=== PATIENT | female | born 1950 | race Caucasian/White ===

== ENCOUNTER 2018-01-30 13:33 | Emergency (ER) | payer MEDICARE, SELFPAY ==
[2018-01-30] VITALS (10 sets, daily range): BP systolic 123–166; BP diastolic 81–100; PULSE 60–82; RESP 11–18; TEMP 36.9; O2SAT 97–100
--- NOTE | 2018-01-30 14:39 | ED_ITS ---
HPI - Extremity Injury (Upper) General Chief Complaint: Extremity Injury, Upper Stated Complaint: sent from [facility] for broken wrist Time Seen by Provider: 01/30/18 14:09 Source: patient Mode of arrival: ambulatory Limitations: no limitations History of Present Illness HPI narrative: Patient is a 67-year-old female sent from [facility] for ortho evaluation. She fell breaking her wrist. She did have x-rays there unfortunately are not able to view them. She is already in a fiberglass mobilizer. She has no numbness or tingling stable to move her fingers she. She denies any other injury. complaint: injury to: left and wrist Related Data Home Medications Medication Instructions Recorded Confirmed hydrocodone-acetaminophen 1 - 2 tab PO Q4H PRN 01/30/18 01/30/18 Previous Rx's Medication Instructions Recorded levothyroxine [Synthroid] 75 mcg PO QAM #90 tab 11/19/16 Allergies Allergy/AdvReac Type Severity Reaction Status Date / Time No Known Allergies Allergy Uncoded 11/06/17 12:40 Review of Systems Review of Systems GENERAL: Denies chills,fever HEENT: Denies throat pain RESPIRATORY: Denies dyspnea, cough, wheezing CARDIOVASCULAR: Denies chest pain, palpitations GASTROINTESTINAL: Denies nausea, vomiting MUSCULOSKELETAL: See HPI SKIN: No rash, no laceration, no pruritus NEUROLOGIC: Denies weakness, dizziness, headache, numbness 8 point review of systems is negative except for those stated above and HPI PFSH Surgical History History of cataract removal with insertion of prosthetic lens Status post appendectomy Status post hemorrhoidectomy Family History Mother Age: 102 Memory loss Grandfather Glaucoma, unspecified glaucoma, unspecified laterality Exam Initial Vital Signs Initial Vital Signs: Vital Signs Temperature 98.4 F 01/30/18 13:35 Pulse Rate 60 01/30/18 13:35 Respiratory Rate 18 01/30/18 13:35 Blood Pressure 123/81 H 01/30/18 13:35 Pulse Oximetry 100 01/30/18 13:35 GENERAL: Well-appearing, well-nourished and in no acute distress. CARDIOVASCULAR: peripheral pulses in tact, cap refill <2 sec RESPIRATORY: No respiratory distress, speaks in full sentences without difficulty EXTREMITIES: Normal range of motion, no clubbing or edema. Neurovascularly intact -obvious left wrist deformity. Neurovascularly intact able to move fingers distal radial pulse is felt NEUROLOGICAL: Cranial nerves II through XII grossly intact. Normal gait and speech. SKIN: Warm, dry, no petechiae, no rashes or lesions. Procedures Orthopedic Fracture Reduction Fracture #1: Time Out Performed: Yes Side: left Fracture Reduction Location: radius and ulna Analgesia: procedural sedation Technique: direct manipulation and traction/counter-traction Post Reduction X-rays Demonstrate: acceptable reduction Post-reduction neuro exam: intact Post-reduction vascular exam: intact Splint Applied: Yes (Sugar-tong splint) Patient Tolerated Procedure: Well Additional Comments: Neurovascularly intact afterwards. Splint applied by myself with assistance of nurse Procedural Sedation Indication: fracture/dislocation reduction ASA Class: I Mallampati Airway Classification: Class I Time of Last PO Intake: 14:44 Preparation: cafeteria monitor applied, pulse oximeter, capnometry used, supplemental O2 applied and IV secured IV Etomidate dose (mg): 6 ED Sedation Level: Moderate (Concious) Patient Tolerated Procedure: Well and No complications Complications: none Course Hospital Course: Dr. Chi on in the ED to see and evaluate patient. Patient will be followed up in the clinic with surgery SaturdayFebruary 03. Additional Information: Orders Ordered: ED Orders 01/30/18 14:40 XR wrist LT min 3V Stat 01/30/18 16:34 XR wrist LT 2V Stat Discontinued Medications Etomidate (Amidate) 6 mg IV NOW ONE Stop: 01/30/18 15:55 Last Admin: 01/30/18 16:25 Dose: 6 mg Morphine Sulfate (Morphine) 2 mg IV NOW ONE Stop: 01/30/18 16:35 Last Admin: 01/30/18 16:40 Dose: 2 mg Ondansetron HCl (Zofran) 4 mg IV NOW ONE Stop: 01/30/18 16:35 Last Admin: 01/30/18 16:40 Dose: 4 mg Vital Signs - 8 hr 01/30/18 13:35 01/30/18 16:16 01/30/18 16:25 Temperature 98.4 F Pulse Rate 60 65 79 Respiratory Rate 18 18 16 Blood Pressure 123/81 H Blood Pressure [Right Arm] 128/81 H 131/85 H Pulse Oximetry 100 100 100 01/30/18 16:27 01/30/18 16:30 01/30/18 16:33 Temperature Pulse Rate 81 77 80 Respiratory Rate 16 18 16 Blood Pressure Blood Pressure [Right Arm] 158/96 H 150/100 H 166/88 H Pulse Oximetry 97 100 100 01/30/18 17:00 01/30/18 17:35 01/30/18 18:13 Temperature Pulse Rate 82 69 77 Respiratory Rate 18 11 L 16 Blood Pressure Blood Pressure [Right Arm] 157/98 H 137/89 H 137/89 H Pulse Oximetry 100 100 100 01/30/18 18:16 Temperature Pulse Rate 77 Respiratory Rate 18 Blood Pressure 137/89 H Blood Pressure [Right Arm] Pulse Oximetry 97 MDM - Extremity Injury (Upper) Imaging Data left wrist #1: Radiologist's impression: PROCEDURE: XR WRIST LT MIN 3V INDICATIONS: fracture sent from [facility] TECHNIQUE: 3 views of the wrist were acquired. COMPARISON: None. FINDINGS: Bones: There are distal radius and ulnar fractures with posterior displacement of the distal fragment from the proximal fragment. Posterior angulation is present. Scaphoid view: Not obtained. Soft tissues: No suspicious soft tissue calcifications. IMPRESSION: Displaced and posterior angulated distal ulna and radial fractures. Dictated by: Edwige Dai M.D. on 01/30/2018 at 14:48 left wrist #2: My impression: Radiologist's impression: PROCEDURE: XR WRIST LT MIN 3V INDICATIONS: fracture sent from [facility] TECHNIQUE: 3 views of the wrist were acquired. COMPARISON: None. FINDINGS: Bones: There are distal radius and ulnar fractures with posterior displacement of the distal fragment from the proximal fragment. Posterior angulation is present. Scaphoid view: Not obtained. Soft tissues: No suspicious soft tissue calcifications. IMPRESSION: Displaced and posterior angulated distal ulna and radial fractures. Dictated by: Edwige Dai M.D. on 01/30/2018 at 14:48 Discharge Plan Departure Patient Disposition: Home, Self-Care Clinical Impression: Fracture of left wrist Discharge Date/Time: 01/30/18 18:16 Interventions: ED Discharge Assessment Last Done: 01/30/18 18:16 Instructions: Wrist Fracture Activity Restrictions/Additional Instructions: *You have been diagnosed with left wrist fracture *What to do: Keep arm and splint at all *Continue to take medications as directed -take medication as previously prescribed *Follow up with your primary care provider in 2-3 days, follow up with Dr. Chi as arranged on [place] for surgery *Return to ER if you should have increasing pain, numbness, tingling or any new , worsening or concerning symptoms Prescriptions: No Action levothyroxine [Synthroid] 75 MCG tablet 75 mcg PO QAM Qty: 90 RF: 1 hydrocodone-acetaminophen 5-325 mg tablet 1 - 2 tab PO Q4H PRN (Reason: Pain, Moderate) RF: 0 Referrals: Kamilah Coleman ARNP [Primary Care Provider] - Ivon Chi MD [Physician] -
--- NOTE | 2018-01-30 14:53 | PC.NURSE ---
pt arrived to Er with a splint from Dr. Bowser's office. pt to able to wiggle her fingers. denies numbness or tingling.
[2018-01-30] MEDS: ETOMIDATE 2 MG/ML VIAL 6 MG IV (16:25)
--- NOTE | 2018-01-30 16:34 | DI.RAD.S_ITS ---
PROCEDURE: XR WRIST LT 2V INDICATIONS: post reduction TECHNIQUE: 2 views of the wrist were acquired. COMPARISON: [facility], CR, XR WRIST LT MIN 3V, 01/30/2018, 14:18. FINDINGS: Bones: No previously unidentified fractures or dislocations. The prior fracture subluxations and angulation abnormalities have been significantly improved after closed reduction and casting. No suspicious bony lesions. Scaphoid view: Not obtained of the scaphoid visualized has appeared free of trauma. Incomplete visualization, however. Soft tissues: No suspicious soft tissue calcifications. IMPRESSION: Significant improvement in the fracture malalignment previously present after closed reduction and casting/splinting. Dictated by: Leonidas Servin M.D. on 01/30/2018 at 16:58 Approved by: Leonidas Servin M.D. on 01/30/2018 at 16:59
[2018-01-30] MEDS: MORPHINE 2 MG/ML INJ IV (16:40)
[2018-01-30] MEDS: ONDANSETRON 4 MG/2 ML INJ IV (16:40)
--- NOTE | 2018-01-31 00:44 | P.HP_ITS ---
History of Present Illness Date Patient Seen: 01/30/18 Time Patient Seen: 17:40 Chief complaint: sent from [place] for broken wrist Narrative: She was up on a chair when she fell on her outstretched hand and noted the acute onset of severe left wrist pain. She denies shortness of breath chest pain or other problems or dizziness prior to her fall. She notes fairly severe left hip wrist pain. She was seen at [facility] and referred for follow-up. Patient History Surgical History History of cataract removal with insertion of prosthetic lens Status post appendectomy Status post hemorrhoidectomy Family & Social History Family History: Reviewed 01/31/18 by Ivon Chi MD Safety & Behavioral: Feels Safe in Current Yes Environment Tobacco & Substance use: alcohol intake frequency 0-2 drinks per day Substance Use Type does not use Meds Home Medications Medication Instructions Recorded Confirmed Type levothyroxine [Synthroid] 75 mcg PO QAM #90 tab 11/19/16 01/30/18 Rx hydrocodone-acetaminophen 1 - 2 tab PO Q4H PRN 01/30/18 01/30/18 History Allergies Allergy/AdvReac Type Severity Reaction Status Date / Time No Known Allergies Allergy Uncoded 11/06/17 12:40 Review of Systems Review of Systems Denies history of heart problems lung problems abdominal problems she is right- hand-dominant. All systems reviewed & are unremarkable except as noted in HPI and below Exam Vital Signs (past 8 hours): - 01/30/18 17:00 01/30/18 17:35 01/30/18 18:13 Pulse Rate 82 69 77 Respiratory Rate 18 11 L 16 Blood Pressure Blood Pressure [Right Arm] 157/98 H 137/89 H 137/89 H Pulse Oximetry 100 100 100 01/30/18 18:16 Pulse Rate 77 Respiratory Rate 18 Blood Pressure 137/89 H Blood Pressure [Right Arm] Pulse Oximetry 97 Oxygen Delivery Method Room Air Oxygen Flow Rate 3 Narrative Exam Narrative: HEENT benign, lungs clear, cor regular rate and rhythm, head is atraumatic, abdomen is benign, the left wrist she is able to fire her fingers with trace motion she has some mild decreased sensation into the fingertips, she has fair range of motion into her left shoulder splints intact, there is deformity of her wrist, sensation slightly decreased in the left hand it is intact in the right hand abdomen soft and benign, lower extremities are benign with no evidence of edema Assessment & Plan Plan: Assessment/Plan Narrative: She has a comminuted left distal radius fracture which was grossly displaced. She has had at closed reduction and splinting in the emergency room. She does have residual displacement in her left wrist and would be benefitted from open reduction internal fixation. Procedure alternatives risks benefits and complications were discussed in detail. We will work on getting her scheduled for that on an outpatient basis. The plan is for a volar plate procedure alternatives risks benefits and complications discussed.
== END 2018-01-30 18:16 | disposition home or self-care (01) ==
PROVIDERS: Emergency Provider Emergency Medicine; PCP Nurse Practitioner Family
DX: S62.102A Fracture of unspecified carpal bone, left wrist, initial encounter for closed fracture (principal); W19.XXXA Unspecified fall, initial encounter
CPT/HCPCS: 25565; 73100; 73110; 96374; 96375; 99152; 99283; 99285; J2270; J2405

== ENCOUNTER → 2021-03-30 11:02 | Outpatient (CLI) | payer MEDICARE, SELFPAY ==
[2021-03-30 19:45] LABS: TSH w/ Reflex to FT4 8.78 uIU/mL (0.47-4.68)
== END ==
PROVIDERS: PCP Physician Assistant Medical; Visit Provider Physician Assistant Medical
DX: E03.9 Hypothyroidism, unspecified (principal)
CPT/HCPCS: 84439; 84443

== ENCOUNTER → 2021-08-02 13:23 | Outpatient (CLI) | payer MEDICARE, SELFPAY ==
[2021-08-02 20:39] LABS: Free T4, Direct Thyroxine 0.71 ng/dL (0.78-2.19)
== END ==
PROVIDERS: PCP Physician Assistant Medical; Referring Provider Physician Assistant Medical; Visit Provider Physician Assistant Medical
DX: E03.8 Other specified hypothyroidism (principal)
CPT/HCPCS: 84439; 84443

== ENCOUNTER → 2022-02-12 10:28 | Outpatient (CLI) | payer MEDICARE, SELFPAY ==
[2022-02-12 20:08] LABS: Add Manual Diff / Slide Review NO; Basophils Absolute Auto 0 /uL (0-100); Basophils Percent Auto 0.8 % (0-2); Eosinophils Absolute Auto 200 /uL (0-450); Eosinophils Percent Auto 3.1 % (2-4); Hematocrit 42.7 % (36-46); Hemoglobin 14.3 g/dL (12.0-16.0); Lymphocytes Absolute Auto 2300 /uL (1100-4500); Lymphocytes Percent Auto 45.8 % (25-40); Mean Corpuscular HGB Conc 33.4 % (30-36); Mean Corpuscular Hemoglobin 30.9 PG (26-34); Mean Corpuscular Volume 92.5 fL (80-100); Monocytes Absolute Auto 400 /uL (0-900); Monocytes Percent Auto 8.4 % (3-14); Neutrophils Absolute Auto 2200 /uL (1500-7000); Neutrophils Percent Auto 41.9 % (50-75); Platelet Count 295 X10^3/uL (150-400); Red Blood Cell Count 4.62 X10^6/uL (4.0-5.2); Red Cell Distribution Width 14.9 % (11.6-14.8); White Blood Cell Count 5.1 X10^3/uL (4.5-11.0)
[2022-02-12 20:16] LABS: Alanine Aminotransferase 25 IU/L (<35); Albumin 3.5 g/dL (3.5-5.0); Albumin Globulin Ratio 1.3 (1.0-2.8); Alkaline Phosphatase 59 U/L (38-126); Aspartate Aminotransferase 37 IU/L (14-36); BUN Creatinine Ratio 21.6 (6-22); Bilirubin Total 0.9 mg/dL (0.2-1.3); Blood Urea Nitrogen 16 mg/dL (7-17); Calcium 9.2 mg/dL (8.4-10.2); Carbon Dioxide 28 mmol/L (22-32); Chloride 104 mmol/L (98-107); Cholesterol 299 mg/dL (140-199); Estimated Glomerular Filt Rate > 60 mL/min (>60); Globulin 2.6 g/dL (1.7-4.1); Glucose 87 mg/dL (80-110); HDL Cholesterol 69 mg/dL (40-60); HEMOLYSIS < 15 (0-50); LDL Cholesterol Calculated 210 mg/dL (<100); Potassium 4.7 mmol/L (3.4-5.1); Sodium 137 mmol/L (137-145); Total Protein 6.1 g/dL (6.3-8.2); Triglycerides 101 mg/dL (35-150)
[2022-02-12 20:39] LABS: Free T3, Triiodothyronine Free 2.78 pg/mL (2.77-5.27)
== END ==
PROVIDERS: PCP Physician Assistant Medical; Visit Provider Physician Assistant Medical
DX: E03.8 Other specified hypothyroidism (principal); S52.92XA Unspecified fracture of left forearm, initial encounter for closed fracture; E03.9 Hypothyroidism, unspecified; G89.29 Other chronic pain; M54.9 Dorsalgia, unspecified; M72.0 Palmar fascial fibromatosis [Dupuytren]; Z12.11 Encounter for screening for malignant neoplasm of colon; S52.202A Unspecified fracture of shaft of left ulna, initial encounter for closed fracture
CPT/HCPCS: 80053; 80061; 84439; 84443; 84481; 85025

== ENCOUNTER → 2022-06-13 10:35 | Outpatient (CLI) | payer MEDICARE, SELFPAY ==
[2022-06-13 19:25] LABS: Add Manual Diff / Slide Review NO; Basophils Absolute Auto 0 /uL (0-100); Basophils Percent Auto 0.9 % (0-2); Eosinophils Absolute Auto 200 /uL (0-450); Eosinophils Percent Auto 3.5 % (2-4); Hematocrit 42.5 % (36-46); Hemoglobin 14.2 g/dL (12.0-16.0); Lymphocytes Absolute Auto 2100 /uL (1100-4500); Lymphocytes Percent Auto 40.3 % (25-40); Mean Corpuscular HGB Conc 33.4 % (30-36); Mean Corpuscular Hemoglobin 31.5 PG (26-34); Monocytes Absolute Auto 600 /uL (0-900); Monocytes Percent Auto 10.4 % (3-14); Neutrophils Absolute Auto 2400 /uL (1500-7000); Neutrophils Percent Auto 44.9 % (50-75); Platelet Count 324 X10^3/uL (150-400); Red Blood Cell Count 4.52 X10^6/uL (4.0-5.2); Red Cell Distribution Width 15.8 % (11.6-14.8); White Blood Cell Count 5.3 X10^3/uL (4.5-11.0)
[2022-06-13 19:30] LABS: Alanine Aminotransferase 34 IU/L (<35); Albumin 3.2 g/dL (3.5-5.0); Albumin Globulin Ratio 1.2 (1.0-2.8); Alkaline Phosphatase 62 U/L (38-126); Aspartate Aminotransferase 34 IU/L (14-36); BUN Creatinine Ratio 13.6 (6-22); Bilirubin Total 0.5 mg/dL (0.2-1.3); Blood Urea Nitrogen 11 mg/dL (7-17); Calcium 9.1 mg/dL (8.4-10.2); Carbon Dioxide 30 mmol/L (22-32); Chloride 103 mmol/L (98-107); Estimated Glomerular Filt Rate > 60 mL/min (>60); Globulin 2.7 g/dL (1.7-4.1); Glucose 83 mg/dL (80-110); HDL Cholesterol 57 mg/dL (40-60); HEMOLYSIS < 15 (0-50); Potassium 4.4 mmol/L (3.4-5.1); Sodium 136 mmol/L (137-145); Total Protein 5.9 g/dL (6.3-8.2); Triglycerides 198 mg/dL (35-150)
[2022-06-13 19:38] LABS: NT-proBNP (BNP-Adult 18+) 4180 pg/mL (<125)
[2022-06-13 19:48] LABS: Cholesterol 395 mg/dL (140-199); LDL Cholesterol Calculated 298 mg/dL (<100)
[2022-06-13 19:55] LABS: Free T3, Triiodothyronine Free 2.48 pg/mL (2.77-5.27)
[2022-06-13 19:56] LABS: Free T4, Direct Thyroxine 1.11 ng/dL (0.78-2.19)
[2022-06-13 20:10] LABS: Thyroid Stimulating Hormone 15.9 uIU/mL (0.47-4.68)
== END ==
PROVIDERS: PCP Physician Assistant Medical; Visit Provider Family Medicine
DX: E03.9 Hypothyroidism, unspecified (principal); R06.02 Shortness of breath; R06.00 Dyspnea, unspecified; R53.82 Chronic fatigue, unspecified; R79.89 Other specified abnormal findings of blood chemistry
CPT/HCPCS: 80053; 80061; 83880; 84439; 84443; 84481; 85025

== ENCOUNTER → 2022-06-15 12:18 | Outpatient (CLI) | payer MEDICARE, SELFPAY ==
--- NOTE | 2022-06-15 12:19 | DI.ECHO.S_ITS ---
[place] [facility]---------+ [facility] +---------+ : : [address] : : : : [id number] : : : : Phone: [phone]+ Echocardiogram Report + + :Name: JACQUELINE STERLING Study Date: 06/15/2022 Height: 64 in : :[facility] ReadingLocation: Weight: 130 lb : : Gender: Female BSA: 1.6 m2 : :: 1950 Age: 71 yrs BP: 112/80 mmHg: :Reason For Study: FATIGUE : :Ordering Physician: : :HELEN MOTLEY Performed By: Carmelo Sherwood : :Referring: HELEN MOTLEY : + + Interpretation Summary Normal sinus rhythm. Normal LV size; severe concentric LVH; normal wall motion and LV systolic function. EF is 55-60%. Stage II diastolic dysfunction. Severe LA enlargement. Otherwise normal chamber sizes. There is a small perimembranous VSD best visualized at 1 o'clock position in parasternal short axis view. No significant valvular abnormalities. Small pericardial effusion. No prior study available for comparison. Procedure: A two-dimensional transthoracic echocardiogram with color flow and Doppler was performed. The study quality was technically adequate. There is no prior echocardiogram noted for this patient. The patient was in normal sinus rhythm during the exam. Left Ventricle: The left ventricle is normal in size. There is severe concentric left ventricular hypertrophy. Left ventricular systolic function is normal. The ejection fraction is estimated to be 55-60%. There are no focal wall motion abnormalities. Diastolic parameters suggest a restrictive filling pattern consistent with probable significantly elevated filling pressures. Right Ventricle: The right ventricle is normal in size and function. Atria: The left atrium is severely dilated. Right atrial size is normal. The interatrial septum grossly appears intact with no obvious evidence for an atrial septal defect. Mitral Valve: There is mild mitral annular calcification. There is trace mitral regurgitation. Aortic Valve: The aortic valve is normal in structure and function. No aortic regurgitation is present. Tricuspid Valve: The tricuspid valve is normal in structure and function. There is a trace or physiologic amount of tricuspid regurgitation. Pulmonary artery pressures cannot be estimated because of the lack of a measurable TR jet velocity. Pulmonic Valve: The pulmonic valve is normal in structure and function. There is mild pulmonic regurgitation. Great Vessels: The aortic root is normal size. The dimensions of the ascending aorta are normal. The IVC is of normal diameter and collapses greater than 50% with a sniff. This suggests a low right atrial pressure of 3 mm Hg. Pericardium/ Pleura There is a small pericardial effusion noted. There are no echocardiographic indications of cardiac tamponade. There is no pleural effusion. MMode/2D Measurements & Calculations LVIDd: 3.4 cm LVOT diam: 2.0 cm LVIDs: 2.5 cm Ao root diam: 2.8 cm FS: 28.5 % asc Aorta Diam: 3.0 cm IVSd: 1.7 cm LVPWd: 1.7 cm LV flynn. diameter/BSA (cm/m^2): 2.1 LV sys. diameter/BSA (cm/m^2): 1.5 LA A2 area: 23.8 cm2 RA long axis: 3.9 cm LA A4 area: 21.8 cm2 RA area: 7.6 cm2 LA length (vol): 5.6 cm RA vol: 12.4 ml LA vol: 78.4 ml RA : 7.6 ml/m2 LA vol index: 48.1 ml/m2 IVC diam: 2.0 cm TAPSE: 1.7 cm Doppler Measurements & Calculations Ao V2 max: 113.7 cm/sec LVOT Max Gordon: 101.8 cm/sec Ao V2 mean: 78.4 cm/sec LV V1 max P.1 mmHg Ao max P.2 mmHg LV V1 VTI: 14.0 cm Ao mean P.8 mmHg ENEIDA(I,D): 2.7 cm2 Ao V2 VTI: 15.7 cm ENEIDA(V,D): 2.7 cm2 sev ratio: 0.90 ENEIDA indexed to BSA (cm^2/m^2): 1.7 MV E max gordon: 58.9 cm/sec SV(LVOT): 42.2 ml MV A max gordon: 21.0 cm/sec MV E/A: 2.8 Med Peak E' Gordon: 3.2 cm/sec E/E' med: 18.4 Lat Peak E' Gordon: 4.7 cm/sec E/E' lat: 12.7 E/e' average: 15.5 MV dec time: 0.19 sec Electronically signed by: Cherie Morataya M.D. on Reading Physician:06/16/2022 04:48 AM
== END ==
PROVIDERS: PCP Physician Assistant Medical; Referring Provider Family Medicine; Visit Provider Family Medicine
DX: I37.1 Nonrheumatic pulmonary valve insufficiency (principal); I31.39 Other pericardial effusion (noninflammatory); R06.00 Dyspnea, unspecified; R53.82 Chronic fatigue, unspecified; R79.89 Other specified abnormal findings of blood chemistry
CPT/HCPCS: 93306

== ENCOUNTER → 2023-01-28 13:30 | Outpatient (CLI) | payer MEDICARE, SELFPAY | PROVIDERS: PCP Physician Assistant Medical; Visit Provider Physician Assistant Medical | DX: E03.8 Other specified hypothyroidism (principal); E03.9 Hypothyroidism, unspecified | CPT/HCPCS: 84443; 84481 ==

== ENCOUNTER → 2023-04-29 10:54 | Outpatient (CLI) | payer MEDICARE, SELFPAY ==
[2023-04-29 20:14] LABS: Free T3, Triiodothyronine Free 3.41 pg/mL (2.77-5.27)
== END ==
PROVIDERS: PCP Physician Assistant Medical; Visit Provider Physician Assistant Medical
DX: E03.9 Hypothyroidism, unspecified (principal)
CPT/HCPCS: 84443; 84481

== ENCOUNTER → 2024-05-06 10:20 | Outpatient (CLI) | payer MEDICARE, SELFPAY ==
[2024-05-06 20:11] LABS: TSH w/ Reflex to FT4 < 0.02 uIU/mL (0.47-4.68)
[2024-05-06 20:40] LABS: Free T4, Direct Thyroxine 1.64 ng/dL (0.78-2.19)
== END ==
PROVIDERS: PCP Physician Assistant Medical; Visit Provider Physician Assistant Medical
DX: E03.8 Other specified hypothyroidism (principal)
CPT/HCPCS: 84439; 84443

== ENCOUNTER → 2024-05-26 13:00 | Outpatient (CLI) | payer MEDICARE, SELFPAY ==
[2024-05-26 19:30] LABS: Hemoglobin 13.7 g/dL (12.0-16.0); Mean Corpuscular HGB Conc 33.4 % (30-36); Mean Corpuscular Hemoglobin 30.8 PG (26-34); Mean Corpuscular Volume 92.1 fL (80-100); Platelet Count 285 X10^3/uL (150-400); Red Blood Cell Count 4.45 X10^6/uL (4.0-5.2); Red Cell Distribution Width 13.9 % (11.6-14.8); White Blood Cell Count 5.9 X10^3/uL (4.5-11.0)
[2024-05-26 19:58] LABS: Free T3, Triiodothyronine Free 3.99 pg/mL (2.77-5.27)
[2024-05-26 20:12] LABS: TSH w/ Reflex to FT4 < 0.02 uIU/mL (0.47-4.68)
[2024-05-26 20:40] LABS: Free T4, Direct Thyroxine 1.55 ng/dL (0.78-2.19)
[2024-05-29 15:36] LABS: Thyroid Peroxidase Antibodies <9 IU/mL (0-34)
== END ==
PROVIDERS: PCP Physician Assistant Medical; Visit Provider Physician Assistant Medical
DX: E03.8 Other specified hypothyroidism (principal); R53.83 Other fatigue; E03.9 Hypothyroidism, unspecified; E05.90 Thyrotoxicosis, unspecified without thyrotoxic crisis or storm
CPT/HCPCS: 84439; 84443; 84481; 85027; 86376; 86800

== ENCOUNTER → 2024-07-02 | Outpatient (CLI) | payer MEDICARE, SELFPAY ==
--- NOTE | 2024-07-02 14:19 | DI.MG.S_ITS ---
BILATERAL DIGITAL SCREENING MAMMOGRAM 3D/2D WITH CAD: 07/02/2024 CLINICAL: Routine screening. No prior exams were available for comparison. The breasts are heterogeneously dense, which may obscure small masses (category c / 51-75% glandular tissue). Current study was also evaluated with a Computer Aided Detection (CAD) system. No significant masses, calcifications, or other findings are seen in either breast. IMPRESSION: NEGATIVE There is no mammographic evidence of malignancy. A 1 year screening mammogram is recommended. Based on the Tyrer Cuzick model (a risk assessment model) the patient's lifetime risk is 4.2% and her 10 year risk is 3.8%. According to the ACR, ACS, and NCCN guidelines, an annual breast MRI exam along with mammogram is recommended if the patient's lifetime risk is 20% or greater. This exam was interpreted at Station ID: [id number]. NOTE: For mammograms, a report in lay terms will be sent to the patient. Approximately 15% of breast malignancies will not be visualized mammographically. In the management of a palpable breast mass, a negative mammogram must not discourage biopsy of a clinically suspicious lesion. Electronically Signed By: Brenda Chirinos M.D., Ph.D. celeste/della:07/16/2024 15:06:11 letter sent: Normal Exam ACR BI-RADS Category 1: Negative
--- NOTE | 2024-07-02 14:19 | DI.RAD.S_ITS ---
PROCEDURE: XR DEXA AXIAL SKELETON INDICATIONS: menopausal screen COMPARISON: None. FINDINGS: Lumbar Spine (L4 excluded): Bone mineral density 0.941 g/cm2, T score -1, osteopenia. Left Hip: Bone mineral density 0.685 g/cm2, T score -2.1, osteopenia. Left Femoral Neck: Bone mineral density 0.563 g/cm2, T score -2.6, osteoporosis. Fracture Risk Calculation (when applicable): Not reported due to osteoporosis. (T score greater or equal to -1.0 to: NORMAL) (T score from -1.1 to -2.4: OSTEOPENIA) (T score less than or equal to -2.5: OSTEOPOROSIS) IMPRESSION: Osteoporosis. Follow-up guidelines as follows: Osteoporosis: Consider a repeat DEXA and Vertebral Fracture Assessment (VFA) exam in 2 years or sooner if medically necessary, to reassess this patient's status. Osteopenia: Consider a repeat DEXA in 2-3 years to reassess this patient's status, or if there is a new clinical indication. Normal: Consider a repeat DEXA in 5 years or sooner, or if there is a new clinical indication. All treatment decisions require clinical judgment and consideration of individual patient factors, including patient preferences, comorbidities, previous drug use, risk factors not captured in the FRAX model (e.g., frailty, falls, vitamin D deficiency, increased bone turnover, interval significant decline in bone density ) and possible under- or over-estimation of fracture risk by FRAX. In addition, the NOF Guide recommends that FDA-approved medical therapies be considered in postmenopausal women and men age >= 50 years with a: * Hip or vertebral (clinical or morphometric) fracture * T-score of <=-2.5 at the spine or hip * Ten-year fracture probability by FRAX of >= 3% for hip fracture or >=20% for major osteoporotic fracture. People with diagnosed cases of osteoporosis or at high risk for fracture should have regular bone mineral density tests. For patients eligible for Medicare, routine testing is allowed once every 2 years. The testing frequency can be increased to one year for patients who have rapidly progressing disease, those who are receiving or discontinuing medical therapy to restore bone mass, or have additional risk factors. Dictated by: Danial Díaz M.D. on 07/02/2024 at 16:57 Approved by: Danial Díaz M.D. on 07/02/2024 at 16:57
== END ==
PROVIDERS: PCP Physician Assistant Medical; Referring Provider Physician Assistant Medical; Visit Provider Physician Assistant Medical
DX: Z78.0 Asymptomatic menopausal state (principal); Z12.31 Encounter for screening mammogram for malignant neoplasm of breast; R92.333 Mammographic heterogeneous density, bilateral breasts; M81.0 Age-related osteoporosis without current pathological fracture
CPT/HCPCS: 77063; 77067; 77080

== ENCOUNTER → 2024-09-23 13:53 | Outpatient (CLI) | payer MEDICARE, SELFPAY ==
[2024-09-23 19:37] LABS: Add Manual Diff / Slide Review NO; Basophils Absolute Auto 0 /uL (0-100); Basophils Percent Auto 0.5 % (0-2); Eosinophils Absolute Auto 100 /uL (0-450); Eosinophils Percent Auto 2.3 % (2-4); Hematocrit 39.7 % (36-46); Hemoglobin 13.2 g/dL (12.0-16.0); Lymphocytes Absolute Auto 2300 /uL (1100-4500); Lymphocytes Percent Auto 36.2 % (25-40); Mean Corpuscular HGB Conc 33.2 % (30-36); Mean Corpuscular Hemoglobin 30.4 PG (26-34); Mean Corpuscular Volume 91.3 fL (80-100); Monocytes Absolute Auto 600 /uL (0-900); Monocytes Percent Auto 9.1 % (3-14); Neutrophils Absolute Auto 3300 /uL (1500-7000); Neutrophils Percent Auto 51.9 % (50-75); Platelet Count 246 X10^3/uL (150-400); Red Blood Cell Count 4.35 X10^6/uL (4.0-5.2); Red Cell Distribution Width 15.2 % (11.6-14.8); White Blood Cell Count 6.4 X10^3/uL (4.5-11.0)
[2024-09-23 19:47] LABS: NT-proBNP (BNP-Adult 18+) 2360 pg/mL (<125)
[2024-09-23 20:25] LABS: Creatinine Urine Random 21.63 mg/dL; Protein (Total) Urine Random 16 mg/dL (0-12); Protein Creatinine Ratio Urine 0.73 GRAM/24H
[2024-09-25 18:08] LABS: Free Kappa Lt Chains, Serum 16.2 mg/L (3.3-19.4); Free Lambda Lt Chains,Serum 17.6 mg/L (5.7-26.3)
== END ==
PROVIDERS: PCP Physician Assistant Medical; Visit Provider Internal Medicine Hematology & Oncology
DX: I50.32 Chronic diastolic (congestive) heart failure (principal); E85.81 Light chain (AL) amyloidosis
CPT/HCPCS: 82570; 83880; 83883; 84156; 85025

== ENCOUNTER → 2024-12-16 13:51 | Outpatient (CLI) | payer MEDICARE, SELFPAY ==
[2024-12-16 20:28] LABS: Add Manual Diff / Slide Review NO; Basophils Absolute Auto 0 /uL (0-100); Basophils Percent Auto 0.4 % (0-2); Eosinophils Absolute Auto 100 /uL (0-450); Eosinophils Percent Auto 1.2 % (2-4); Hematocrit 40.5 % (36-46); Hemoglobin 13.7 g/dL (12.0-16.0); Lymphocytes Absolute Auto 2000 /uL (1100-4500); Lymphocytes Percent Auto 30.3 % (25-40); Mean Corpuscular HGB Conc 33.8 % (30-36); Mean Corpuscular Hemoglobin 30.5 PG (26-34); Mean Corpuscular Volume 90.3 fL (80-100); Monocytes Absolute Auto 600 /uL (0-900); Neutrophils Absolute Auto 4000 /uL (1500-7000); Neutrophils Percent Auto 59.1 % (50-75); Platelet Count 546 X10^3/uL (150-400); Red Blood Cell Count 4.48 X10^6/uL (4.0-5.2); Red Cell Distribution Width 14.3 % (11.6-14.8); White Blood Cell Count 6.7 X10^3/uL (4.5-11.0)
[2024-12-16 20:46] LABS: NT-proBNP (BNP-Adult 18+) 2780 pg/mL (<450)
[2024-12-16 21:03] LABS: Creatinine Urine Random 25.88 mg/dL; Protein (Total) Urine Random 15 mg/dL (0-12); Protein Creatinine Ratio Urine 0.57 GRAM/24H
[2024-12-16 21:09] LABS: TSH w/ Reflex to FT4 0.03 uIU/mL (0.47-4.68)
[2024-12-16 21:46] LABS: Free T4, Direct Thyroxine 1.42 ng/dL (0.78-2.19)
[2024-12-18 14:39] LABS: Free Kappa Lt Chains, Serum 19.8 mg/L (3.3-19.4); Free Lambda Lt Chains,Serum 33.9 mg/L (5.7-26.3)
== END ==
PROVIDERS: PCP Physician Assistant Medical; Visit Provider Internal Medicine Hematology & Oncology
DX: E85.81 Light chain (AL) amyloidosis (principal); I50.32 Chronic diastolic (congestive) heart failure; E03.9 Hypothyroidism, unspecified
CPT/HCPCS: 82570; 83880; 83883; 84156; 84439; 84443; 85025

== ENCOUNTER → 2024-12-31 11:18 | Outpatient (CLI) | payer MEDICARE, SELFPAY ==
--- NOTE | 2024-12-31 11:22 | DI.CT.S_ITS ---
PROCEDURE: CT CHEST WO CON INDICATIONS: ABN CXR'S. RLL OPACITY TECHNIQUE: Noncontrast 5 mm thick sections acquired from the pulmonary apices to the posterior costophrenic angles. 1 mm lung window, 5 mm thick coronal and sagittal and 7 mm axial MIP reformats were then acquired. For radiation dose reduction, the following was used: automated exposure control, adjustment of mA and/or kV according to patient size. COMPARISON: None. FINDINGS: Image quality: Diagnostic. Lower Neck: No enlarged lymph nodes. Thyroid: No thyroid nodules which require sonographic follow up, per consensus guidelines. Axillae: No enlarged lymph nodes. Chest Wall: Unremarkable. Bones: Unremarkable. Lungs and Pleura: No pneumothorax or pleural effusions. There is mild bronchiectasis seen especially in the lower lobes. Mild small airway densities seen in the mid to lower lung, more on the right. There are also several small areas of ground-glass density in the right lower lobe as well as linear densities extending posteriorly. No solid consolidation. Heart: Heart size is normal. No pericardial effusion. Thoracic Vessels: The aorta and pulmonary arteries demonstrate normal size. Mediastinum and Chaya: No enlarged lymph nodes. Esophagus: No wall thickening. No hiatal hernia. Upper Abdomen: Visualized upper abdomen solid organs and bowel loops appear normal. IMPRESSION: 1. Findings most suggestive of mild bronchiectasis as well as bronchiolitis, with several very small areas of alveolitis as well as mild scarring/subsegmental atelectasis in the right lower lobe. 2. No solid consolidation or significant focal lung parenchymal lesion seen. Dictated by: Elias Bull M.D. on 12/31/2024 at 14:18 Approved by: Elias Bull M.D. on 12/31/2024 at 14:22
== END ==
PROVIDERS: PCP Physician Assistant; Referring Provider Physician Assistant; Visit Provider Physician Assistant
DX: R93.89 Abnormal findings on diagnostic imaging of other specified body structures (principal); R05.9 Cough, unspecified
CPT/HCPCS: 71250

== ENCOUNTER → 2025-03-10 13:48 | Outpatient (CLI) | payer MEDICARE, SELFPAY ==
[2025-03-10 19:41] LABS: Add Manual Diff / Slide Review NO; Hematocrit 43.3 % (36-46); Hemoglobin 14.4 g/dL (12.0-16.0); Lymphocytes Absolute Auto 1900 /uL (1100-4500); Mean Corpuscular HGB Conc 33.3 % (30-36); Mean Corpuscular Hemoglobin 30.7 PG (26-34); Mean Corpuscular Volume 92.3 fL (80-100); Platelet Count 220 X10^3/uL (150-400)
[2025-03-10 20:15] LABS: Protein (Total) Urine Random 12 mg/dL (0-12); Protein Creatinine Ratio Urine 0.79 GRAM/24H
[2025-03-10 20:23] LABS: NT-proBNP (BNP-Adult 18+) 2230 pg/mL (<450)
== END ==
PROVIDERS: PCP Physician Assistant; Visit Provider Internal Medicine Hematology & Oncology
DX: E85.81 Light chain (AL) amyloidosis (principal); I50.32 Chronic diastolic (congestive) heart failure
CPT/HCPCS: 82570; 83880; 83883; 84156; 85025

== ENCOUNTER → 2025-04-05 10:29 | Outpatient (CLI) | payer MEDICARE, SELFPAY ==
[2025-04-05 19:41] LABS: Alanine Aminotransferase 36 IU/L (<35); Albumin 4.2 g/dL (3.5-5.0); Albumin Globulin Ratio 1.7 (1.0-2.8); Alkaline Phosphatase 84 U/L (38-126); Blood Urea Nitrogen 18 mg/dL (7-17); Calcium 9.6 mg/dL (8.4-10.2); Carbon Dioxide 28 mmol/L (22-32); Chloride 100 mmol/L (98-107); Estimated Glomerular Filt Rate > 60 mL/min (>60); Globulin 2.5 g/dL (1.7-4.1); Glucose 77 mg/dL (70-99); HEMOLYSIS < 15 (0-50); Potassium 4.8 mmol/L (3.4-5.1); Sodium 136 mmol/L (137-145); Total Protein 6.7 g/dL (6.3-8.2)
[2025-04-08 15:12] LABS: Albumin 3.7 g/dL (2.9-4.4); Alpha-1-Globulin 0.2 g/dL (0.0-0.4); Alpha-2-Globulin 0.8 g/dL (0.4-1.0); Gamma Globulin 0.9 g/dL (0.4-1.8); Immunoglobulin G,Serum 825 mg/dL (586-1602)
[2025-04-08 15:36] LABS: Free Kappa Lt Chains, Serum 18.0 mg/L (3.3-19.4); Free Lambda Lt Chains,Serum 18.9 mg/L (5.7-26.3)
== END ==
PROVIDERS: PCP Physician Assistant; Visit Provider Nurse Practitioner
DX: E85.81 Light chain (AL) amyloidosis (principal)
CPT/HCPCS: 80053; 82784; 83883; 84155; 84165; 86334

== ENCOUNTER → 2025-06-03 13:18 | Outpatient (CLI) | payer MEDICARE, SELFPAY ==
[2025-06-03 19:05] LABS: Add Manual Diff / Slide Review NO; Hematocrit 43.7 % (36-46); Hemoglobin 14.5 g/dL (12.0-16.0); Lymphocytes Absolute Auto 1800 /uL (1100-4500); Mean Corpuscular HGB Conc 33.1 % (30-36); Mean Corpuscular Hemoglobin 29.9 PG (26-34); Mean Corpuscular Volume 90.4 fL (80-100); Platelet Count 183 X10^3/uL (150-400)
[2025-06-03 19:27] LABS: NT-proBNP (BNP-Adult 18+) 1860 pg/mL (<450)
[2025-06-03 19:49] LABS: Protein (Total) Urine Random 10 mg/dL (0-12); Protein Creatinine Ratio Urine 0.22 GRAM/24H
== END ==
PROVIDERS: PCP Physician Assistant; Visit Provider Internal Medicine Hematology & Oncology
DX: E85.81 Light chain (AL) amyloidosis (principal); I50.32 Chronic diastolic (congestive) heart failure
CPT/HCPCS: 82570; 82784; 83880; 83883; 84155; 84156; 84165; 85025; 86334